=== PATIENT | male | born 1980 | race Caucasian/White ===

== ENCOUNTER 2018-01-23 07:44 | Outpatient (CLI) | payer MEDICAID, SELFPAY ==
--- NOTE | 2018-01-23 08:19 | DI.RAD_ITS ---
SYMPTOM/DIAGNOSIS: THUMB TRAUMA, T14.90XA RIGHT THUMB: Three views. No bone or joint abnormality is identified. IMPRESSION: Negative examination.
== END 2018-01-23 08:04 ==
PROVIDERS: PCP Emergency Medicine; Visit Provider Emergency Medicine
DX: M79.645 Pain in left finger(s) (principal); S69.82XA Other specified injuries of left wrist, hand and finger(s), initial encounter
CPT/HCPCS: 73140

== ENCOUNTER 2018-02-21 08:01 | Outpatient (CLI) | payer MEDICAID, SELFPAY ==
--- NOTE | 2018-02-21 08:08 | W.PREOPHP ---
Assessment and Plan (1) Finger mass, right: Current visit: Yes Status: Acute Plan: Discussed surgery reviewing surgical technique, recovery, benefits and risks including but not limited to risk of infection, blood clot, damage to soft tissue/nerve/blood vessels with patient in detail. After discussion patient gives verbal understanding of risks and elects to proceed with scheduling surgery. Patient had opportunity to have questions answered to his satisfaction. Patient will contact office if issues arise, he will continue to be scheduled for excisional biopsy of possible cyst from his right thumb with Dr. Flores. History of Present Illness Narrative: Mr. Hsu is a 37-year-old tjtzb-lbaj-iludnkzo male who presents to clinic with his girlfriend, Shahida, for preoperative visit for scheduled excisional biopsy of cyst on right thumb with Dr. Flores. Patient reports noticing areas of swelling on his right thumb following a ride on the [employer] in early November 2017. Since that time patient has noticed slight increase in swelling as well as discomfort. He describes discomfort as a constant ache that is aggravated with direct pressure and when attempting to hold objects with his right hand. Patient denies any history of direct trauma to the area. Patient denies any use of ruwa-pfq-awpnfgn medications or topical creams for pain alleviation. He has previously had a right thumb x-ray which was reviewed at his orthopedic appointment - films showed no signs of foreign body, bone or joint abnormality. Due to patient's pain and restricted activity he was offered excisional biopsy of what is likely a cyst from his right thumb. Patient reports he has difficulty using his right hand as he had previously due to the discomfort and elected to proceed with scheduling surgery. He denies any numbness or tingling. Pertinent Surgical Information Denies past medical history of: Hypertension, stroke, cardiac issues, angina, asthma, COPD, sleep apnea, renal issues, liver issues, hepatitis, gastrointestinal issues, ulcers, hyperlipidemia, bleeding disorders, seizures?migraines, anxiety, depression, diabetes, autoimmune disorders, thyroid issues Denies prior complications from surgery or anesthesia. Review of Systems Constitutional Denies fever(s), Denies frequent falls and Denies headache(s) Eyes Denies change in vision ENT Denies dental pain, Denies dizziness, Denies headache(s), Denies epistaxis, Denies nasal congestion, Denies nasal discharge and Denies sore throat Cardiovascular Denies chest pain, Denies rapid heart rate, Denies irregular heart rhythm, Denies dyspnea, Denies dyspnea on exertion, Denies orthopnea, Denies paroxysmal nocturnal dyspnea and Denies slow heart rate Respiratory Denies cough, Denies dyspnea, Denies dyspnea on exertion and Denies wheezing Gastrointestinal Denies abdominal pain, Denies melena, Denies hematochezia, Denies constipation, Denies diarrhea, Denies nausea and Denies vomiting Genitourinary Denies hematuria, Denies dysuria and Denies urinary urgency Musculoskeletal Reports as per HPI, Denies numbness and Denies tingling Neurologic Denies dizziness, Denies frequent falls, Denies headache(s), Denies numbness and Denies tingling Psychiatric Denies anxiety and Denies depression Allergic/Immunologic Denies wheezing PFSH Medical History Finger mass, right (Acute) History of tooth extraction (Acute) Learning disabilities (Acute) Surgical History Myringotomy w/ PE (pressure equalizing) tubes nasal surgery Family History Mother Diabetes Father COPD (chronic obstructive pulmonary disease) Maternal Grandfather Liver cancer Social History marital status: SINGLE current occupational status: disabled Smoking/Tobacco Use Status: Never alcohol intake: never substance use type: does not use Meds Home Medications Medication Instructions Recorded Confirmed Type Unknown [No Known Home Meds] 03/03/17 02/13/18 History Allergies Allergy/AdvReac Type Severity Reaction Status Date / Time No Known Drug Allergies Allergy Verified 02/13/18 09:15 Exam Const General: cooperative and no acute distress [facility] Head: normal to inspection, normocephalic and atraumatic Ears: external ears normal General nose exam: external nose normal and no nasal discharge Face and sinus: face symmetric Mouth: oral mucosae normal, lip normal, tongue normal and moist mucous membranes Teeth and gingiva: fair dentition Throat: posterior oropharynx normal Eyes General: appearance normal, both eyes and all related structures Pupils: PERRL EOM: EOM intact bilaterally Neck Neck: trachea midline Carotids: normal carotid upstroke Lymphatic: no lymphadenopathy noted Resp Effort & Inspection: normal respiratory effort and able to speak in complete sentences Auscultation: clear to auscultation bilaterally, no rales, no rhonchi and no wheezes Cardio Heart Sounds: S1 normal, S2 normal, no murmurs, no rubs and no other Pulses: radial pulses present bilaterally GI Palpation: soft, no hepatosplenomegaly and nontender Auscultation: normal bowel sounds Skin General skin exam: no rashes or lesions noted Extrem Other: Right thumb examination: Skin is intact without signs of erythema or calor. On visual examination there is a noted soft tissue mass on the ulnar lateral aspect of the IP joint. Mass is soft to palpation and is slightly tender. Sensation to light touch intact along the thumb. Active range of motion of thumb is slightly restricted compared to contralateral side due to patient's discomfort along mass elicited with movement at the CMC and IP joints.
== END 2018-02-21 08:21 ==
PROVIDERS: PCP Emergency Medicine; Visit Provider Orthopaedic Surgery
DX: R22.31 Localized swelling, mass and lump, right upper limb (principal); Z01.818 Encounter for other preprocedural examination
CPT/HCPCS: NC

== ENCOUNTER 2018-02-26 11:09 | Day surgery (SDC) | payer MEDICAID, SELFPAY ==
[2018-02-26 11:15] VITALS: BP 135/85; PULSE 67; RESP 16; TEMP 36.3; O2SAT 97
[2018-02-26] MEDS: Lactated Ringers 1,000 ML 80 ML IV ×2 (11:45→13:46)
--- NOTE | 2018-02-26 13:31 | SOFT_PTH ---
PATIENT: Cesar Hsu LOC: [facility] U#:[id number] AGE/SX: 37/M ROOM: RE02/26/[address]: Dixon Flores MD : 1980 BED: DIS: 02/26/2018 SPEC #: [id number] RECD: 02/26/18 17:48 STATUS: MARY PARKS #: [id number] RHETT: 02/26/18 13:[address]: Dixon Flores DEPT: Surgical Specimen RECD BY: Charmaine Haskins ENTERED: 02/26/18 17:50 SP TYPE: SOFT OTHR DR: Papito Thacker DO Tissues: 1 - SOFT TISSUE MISC (INC. LIPOMA) Procedures: GROSS AND MICRO LEVEL 4 Comments: [id number]
--- NOTE | 2018-02-26 13:48 | PDOC.DSDIS_ITS ---
Discharge Plan Disposition Patient Disposition: HOME Condition: Good Discharge Details Reason For Visit: excisional biopsy of mass R thumb Attending Provider: Dixon Flores Primary Care Provider: Papito Thacker Home Meds and New Rx's Prescriptions: New ibuprofen 800 mg tablet 800 mg PO TID PRN (Reason: pain) Qty: 30 RF: 0 hydrocodone-acetaminophen 5-325 mg tablet 1 tab PO Q6H PRN (Reason: pain) Qty: 7 RF: 0 Discharge Instructions Additional Instructions: Keep dressings and splint dry and in place until return. Return to 's office in one week. Take ibuprofen as prescribed for pain. Take hydrocodone, if needed, for breakthru pain not relieved by ibuprofen. Referrals: Dixon Flores MD [ [facility] STAFF PHYSICIAN] - (f/u in one week) Equipment/Supplies: Splint Activity:: Activity as Tolerated Remove Dressings/Wound Care:: Do Not Remove Shower/Bathe:: Cover Diet:: As Tolerated Discharge Orders Discharge Orders: Discharge Order (Routine); Ordered 02/26/18 Ordered By: Dixon Flores DS: Diagnosis Discharge Diagnosis (1) Finger mass, right: Status: Acute
[2018-02-26 14:30] VITALS: BP 118/82; PULSE 64; RESP 16; TEMP 36.2; O2SAT 97
[2018-02-26] MEDS: HYDROcodone 5/Acetaminophen 325 TAB PO (14:30)
--- NOTE | 2018-02-27 15:55 | ROE_ITS ---
DATE OF PROCEDURE: February 26, 2018 PREOPERATIVE DIAGNOSIS: Mass dorsum right thumb. POSTOPERATIVE DIAGNOSIS: Mass dorsum right thumb. PROCEDURE: Excisional biopsy of mass from the dorsum of the right thumb. SURGEON: Dixon Flores M.D. ANESTHESIA: IV regional, Jose De La Cruz CRNA INDICATIONS: This is a 37-year-old white male who has noticed a painful mass on the dorsum of his ri ght thumb. The mass was located just radial to the extensor tendon over the IP joint of the right th umb. It was firm and hard and really felt like a solid tumor rather than a cyst. Excisional biopsy was recommended to determine the exact nature of the mass, to rule out malignancy, and to alleviate d iscomfort. The risks and complications of the procedure were explained to the patient in detail preo peratively. PROCEDURE: The patient was taken to the Operating Room on 02/26/18. He was placed supine on the oper ating table and an IV regional anesthetic was administered to the right upper extremity. Once good a nesthesia was obtained, the right hand, wrist, and forearm were prepped and draped free in the usual sterile fashion. I made an incision that began a few millimeters distal to the lunula of the fingern ail of the thumb. The incision was then brought proximal and curved around the mass on the ulnar anthony e of the extensor tendon, and the incision was then brought back to a longitudinal portion proximal t o the mass and paralleling the extensor tendon of the thumb. The incision was carried down to the bcu. I was able to sharply dissect the extensor tendon and retract it radially away from the mass. The mass was quite adherent to the dorsal capsule of the IP joint. The mass was then excised along w ith a portion of the dorsal capsule of the IP joint to which it was attached. The specimen was sent for histological examination. A rongeur was used to remove any tissue that looked like it might be a remnant of the mass. It was a solid mass and not cystic in nature. Once I was sure that only griselda l tissue remained, I irrigated the joint with Betadine and saline solution. I did not attempt to trinh se the defect in the dorsal capsule of the IP joint. The wound margins were infiltrated with 0.5% Marcaine with epinephrine solution and the skin edges we re then approximated with simple interrupted #4-0 nylon sutures. The wound was dressed with Xeroform gauze followed by tube gauze. Then an AlumaFoam splint was placed over the thumb to immobilize the IP joint in extension and was applied with tape. The patient's IV regional anesthesia was reversed w ithout complications. There was no breakthrough bleeding to the dressings. The patient was discharg ed to the Recovery Room in good condition. The patient was discharged home from the Day Surgery Unit when fully recovered from his IV regional a nesthesia. He was given instructions to keep his dressings and splint dry and intact until he follow s up in my office in one week for a dressing change and wound check. He is given a prescription for breakthrough pain of hydrocodone/APAP 5 mg/325 mg, 1 tablet every 6 hours as needed, 7 tablets. He w ill take Tylenol or ibuprofen for mild pain.
== END 2018-02-26 14:52 | disposition home or self-care (01) ==
PROVIDERS: PCP Emergency Medicine; Visit Provider Orthopaedic Surgery
PROC: (CPT 26160; principal; 2018-02-26 13:00)
DX: D48.0 Neoplasm of uncertain behavior of bone and articular cartilage (principal); R22.31 Localized swelling, mass and lump, right upper limb
CPT/HCPCS: 26160; 88305; 88304; J0690; J1885

== ENCOUNTER 2020-12-21 15:16 | Outpatient (REF) | payer MEDICAID, SELFPAY ==
[2020-12-23 15:54] LABS: COVID-19 RT-PCR UVMMC Result Negative (Negative)
== END 2020-12-21 15:17 | disposition home or self-care (01) ==
LOC: LBN 15:16
PROVIDERS: PCP Emergency Medicine; Visit Provider Family Medicine
DX: Z20.822 Contact with and (suspected) exposure to COVID-19 (principal); R50.9 Fever, unspecified
CPT/HCPCS: U0003

== ENCOUNTER 2021-01-17 00:24 | Outpatient (CLI) | payer MEDICAID, SELFPAY ==
--- NOTE | 2021-01-17 07:15 | DI.US_ITS ---
Exam(s) US ABDOMEN EXAM: US ABDOMEN CLINICAL HISTORY: recurrent RUQ pain, post prandial, r/o gallstones,R10.9 TECHNIQUE: Ultrasound abdomen performed using standard protocol. COMPARISON: US ABDOMEN ULTRASOUND (P) from 01/23/2010 US ABDOMEN ULTRASOUND (P) from 01/23/2010 CT ABD PELVIS WITH CONTRAST from 07/08/2013 CT ABD PELVIS WITH CONTRAST from 07/08/2013 FINDINGS: ABDOMINAL AORTA AND IVC: Visualized portions normal caliber. PANCREAS: Obscured by overlying bowel. LIVER: Normal. Hepatopedal flow in the Portal Vein. The liver measures 15.8 cm long. GALLBLADDER: The gallbladder is full of stones. No evidence of wall thickening. No pericholecystic f luid identified. BILIARY SYSTEM: Common bile duct measures < 7 mm. No intrahepatic biliary ductal dilation. NAIR'S SIGN: Negative. KIDNEYS: Kidneys are symmetric in size. No evidence of renal calculi. No evidence of hydronephrosis. No renal mass or cyst identified. SPLEEN: Not enlarged. ASCITES: None seen. IMPRESSION: Cholelithiasis. No biliary ductal dilatation. No sonographic evidence of acute cholecystitis. DATA REPOSITORY:
== END 2021-01-17 00:44 ==
PROVIDERS: PCP Emergency Medicine; Visit Provider Family Medicine
DX: R10.11 Right upper quadrant pain (principal); K80.20 Calculus of gallbladder without cholecystitis without obstruction
CPT/HCPCS: 76700

== ENCOUNTER 2021-01-26 11:10 | Outpatient (REF) | payer MEDICAID, SELFPAY ==
[2021-01-26 10:29] LABS: HCT 47.9 % (40.0-50.0); HGB 15.8 g/dL (13.5-17.5); MCH 29.3 pg (27.0-33.0); MCV 88.9 fL (80-95); MPV 9.4 fL (8.0-11.0); Platelet Count 320 10^3/uL (130-400); RBC 5.39 10^6/uL (4.36-5.78); RDW 13.4 % (11.8-14.1); RDW-SD 43.7 fL; WBC 9.31 10^3/uL (4.4-10.8)
[2021-01-26 10:42] LABS: ALT 60 U/L (16-63); AST 22 U/L (15-37); Albumin 3.8 g/dL (3.4-5.0); Alkaline Phosphatase 80 U/L (46-116); Anion Gap 8.3 mmol/L (3-11); BUN 14 mg/dL (7-18); Bilirubin, Total 0.4 mg/dL (0.2-1.0); C-Reactive Protein 0.69 mg/dL (0.0-0.3); CO2 26.7 mmol/L (21.0-32.0); CREATININE 0.7 mg/dL (0.70-1.30); Chloride 104 mmol/L (98-107); Glucose 116 mg/dL (74-106); Sodium 139 mmol/L (136-145); Total Protein 7.8 g/dL (6.4-8.2)
== END 2021-01-26 11:11 | disposition home or self-care (01) ==
LOC: LBN 11:10
PROVIDERS: PCP Emergency Medicine; Visit Provider Surgery
DX: F81.9 Developmental disorder of scholastic skills, unspecified (principal); K80.00 Calculus of gallbladder with acute cholecystitis without obstruction; R79.82 Elevated C-reactive protein (CRP)
CPT/HCPCS: 80053; 85027; 86140

== ENCOUNTER 2021-02-20 03:20 | Outpatient (CLI) | payer MEDICAID, SELFPAY ==
[2021-02-20 10:37] LABS: Source Nasal/Nares
[2021-02-20 15:12] LABS: COVID-19 PCR Negative (Negative)
== END 2021-02-20 03:21 | disposition home or self-care (01) ==
LOC: LBO 03:20
PROVIDERS: PCP Emergency Medicine; Visit Provider Surgery
DX: Z20.822 Contact with and (suspected) exposure to COVID-19 (principal)
CPT/HCPCS: 87635

== ENCOUNTER 2021-02-21 11:36 | Inpatient (IN) | payer MEDICAID, SELFPAY ==
--- NOTE | 2021-02-20 11:17 | W.ANESPOSTOP ---
Postoperative Evaluation Date, Time and Location Date Performed: 02/20/21 Time Performed: 11:18 Patient Location: Day Surgery Unit Vital Signs Most Recent Manually Entered Vital Signs: Adult Blood Pressure: 167/90 Heart Rate: 86 Respirations: 12 Oxygen Saturation (%): 99 Temperature (C): 36.2 C Pain Score (0-10 Scale): 0 Assessment Mental Status: Awake (Alert & Oriented to Patient Baseline) Airway and Respiratory Function: Patent airway with normal (patient baseline) respiratory exam Cardiovascular Function: Hemodynamically Stable Hydration Status: Adequately Hydrated Nausea & Vomiting: No Nausea or Vomiting Pain: Pt. Denies Any Pain Peripheral Nerve Block: Patient did not receive a nerve block
[2021-02-21] VITALS (17 sets, daily range): BP systolic 103–139; BP diastolic 66–87; PULSE 85–104; RESP 12–19; TEMP 36–37.7; O2SAT 92–96; BMI 33.7
[2021-02-21] MEDS: Lactated Ringers 1,000 ML 80 ML IV ×2 (08:38→17:43)
[2021-02-21] MEDS: Acetaminophen 500 MG TAB 1000 MG PO (08:39)
[2021-02-21] MEDS: Gabapentin 300 MG CAP 600 MG PO (08:39)
--- NOTE | 2021-02-21 08:44 | W.ANESPRE ---
General Info Date of Service Date Performed: 02/21/21 Height: 5 ft 5 in Weight: 92 kg Body Mass Index (BMI): 33.7 Surgical Procedure: Operation Date: 02/21/21 09:40 Proposed Procedures Side Surgeon p Cholecystectomy Laparoscopic poss. Open Roxanna Mascorro, Meds Allergies and Home Medications Allergies Allergy/AdvReac Type Severity Reaction Status Date / Time No Known Drug Allergies Allergy Unknown Verified 02/21/21 08:06 Home Medication Medication Instructions Recorded omeprazole magnesium 20 mg 20 mg PO DAILY #30 tab 01/11/21 tablet,delayed release Current Visit Medications: Current Medications Generic Name Dose Route Start Last Admin Trade Name Freq PRN Reason Stop Dose Admin Acetaminophen 1,000 mg 02/21/21 06:00 02/21/21 08:39 Acetaminophen 500 Mg Tab PO 03/22/21 23:59 1,000 mg PREOP DESTINEY Administration Gabapentin 600 mg 02/21/21 06:00 02/21/21 08:39 Gabapentin 300 Mg Cap PO 03/22/21 23:59 600 mg PREOP DESTINEY Administration Ringer's Solution 1,000 mls @ 80 mls/hr 02/21/21 06:00 02/21/21 08:38 IV 03/22/21 23:59 80 mls/hr INFUSION DESTINEY Administration Cefazolin Sodium/Dextrose 2 gm in 50 mls @ 100 mls/hr 02/21/21 06:00 Ancef Duplex IVPB 03/22/21 23:59 PREOP DESTINEY IV Miscellaneous Supplies 1 each 02/21/21 06:00 Iv Access IV 03/22/21 23:59 DIRECTED DESTINEY Sodium Chloride 0 ml 02/21/21 06:00 Normal Saline Flush 10 Ml Syr IV 03/22/21 23:59 PRN PRN Sodium Chloride 0 ml 02/21/21 06:00 Normal Saline 10 Ml Vial IJ 03/22/21 23:59 DIRECTED PRN Sterile Water 0 ml 02/21/21 06:00 Water,Injection,Sterile 10 Ml Vial IJ 03/22/21 23:59 DIRECTED PRN PFSH Active Problems Active Problems: Problem Status Onset Code Gross hematuria 10/26/11 R31.0 Hemoptysis 10/26/11 R04.2 Learning disabilities F81.9 History of tooth extraction K08.409 Finger mass, right R22.31 Hematoma of left lower extremity S80.12XA Bilateral otitis externa H60.93 Impacted cerumen H61.20 Dizzy R42 Gallstone K80.20 Acute cholecystitis due to biliary calculus K80.00 Medical History Medical History (Updated 02/21/21 @ 08:07 by Theresa Chau RN) GERD (gastroesophageal reflux disease) Surgical History Surgical History (Updated 02/21/21 @ 08:06 by Theresa Chau RN) H/O excision of mass right thumb Myringotomy w/ PE (pressure equalizing) tubes nasal surgery Surgical repair of choanal atresia as an . Tobacco Smoking/Tobacco Use Status: Never Alcohol Alcohol Intake: never Substance Use Substance use: Never Substance use type: does not use Vital Signs and Lab Results Vital Signs Most Recent Vital Signs in EMR: Most Recent Vital Signs Temp Pulse Resp BP Pulse Ox 36.6 C 86 16 130/82 96 02/21/21 07:58 02/21/21 07:58 02/21/21 07:58 02/21/21 07:58 02/21/21 07:58 Lab Results Blood Type / Crossmatch: No Data to Display Complete Blood Count: White Blood Count 9.31 10^3/uL (4.4-10.8) 01/26/21 10:05 01/26/21 Red Blood Count 5.39 10^6/uL (4.36-5.78) 01/26/21 10:05 01/26/21 Hemoglobin 15.8 g/dL (13.5-17.5) 01/26/21 10:05 01/26/21 Hematocrit 47.9 % (40.0-50.0) 01/26/21 10:05 01/26/21 Platelet Count 320 10^3/uL (130-400) 01/26/21 10:05 01/26/21 Complete Metabolic Panel: Sodium Level 139 mmol/L (136-145) 01/26/21 10:05 01/26/21 Potassium Level 4.0 mmol/L (3.5-5.1) 01/26/21 10:05 01/26/21 Chloride Level 104 mmol/L (98-107) 01/26/21 10:05 01/26/21 Carbon Dioxide Level 26.7 mmol/L (21.0-32.0) 01/26/21 10:05 01/26/21 Blood Urea Nitrogen 14 mg/dL (7-18) 01/26/21 10:05 01/26/21 Creatinine 0.7 mg/dL (0.70-1.30) 01/26/21 10:05 01/26/21 Estimated GFR/1.73 m2 >= 60.00 (mL/min/1.73m2) 01/26/21 10:05 01/26/21 Calcium Level 9.0 mg/dL (8.5-10.1) 01/26/21 10:05 01/26/21 Albumin 3.8 g/dL (3.4-5.0) 01/26/21 10:05 01/26/21 Glucose Level 116 mg/dL (74-106) H 01/26/21 10:05 01/26/21 C-Reactive Protein 0.69 mg/dL (0.0-0.3) H 01/26/21 10:05 01/26/21 Liver Function Panel: Alanine Aminotransferase (ALT/SGPT) 60 U/L (16-63) 01/26/21 10:05 01/26/21 Aspartate Amino Transf (AST/SGOT) 22 U/L (15-37) 01/26/21 10:05 01/26/21 Coagulation Panel: No Data to Display Cardiac Panel: No Data to Display Arterial Blood Gas: No Data to Display Venous Blood Gas: No Data to Display Pancreas Panel: No Data to Display Thyroid Panel: No Data to Display Infectious Disease: Coronavirus (COVID-19)(PCR) Negative (Negative) 02/20/21 08:36 02/20/21 Coronavirus 2019 Source Nasal/Nares 02/20/21 08:36 02/20/21 Blood Cultures: No Data to Display Toxicology Panel: No Data to Display Anesthesia Assessment and Plan Anesthesia History Personal History: No History of Anesthesia Complications Family History: No Family History of Anesthesia Complications Exercise Tolerance Exercise Tolerance: Metabolic Equivalents>4 Pertinent Negatives Pertinent Negatives: No Symptoms of GERD, No Major Cardiovascular Symptoms or Complaints and No Major Pulmonary Symptoms or Complaints Cardiac & Pulmonary Exam Cardiac Exam: Normal S1/S2 Heart Sounds Pulmonary Exam: Clear Bilateral Breath Sounds Implantable Cardiac Device Does patient have a Pacemaker or an ICD?: No Airway Exam Known Difficult Airway: No Mallampati Class: 3 Mouth Opening: Normal (> 3cm) Thyromental Distance: Greater than 3 cm Facial Hair: Full Vaughn Neck Range of Motion: Full ROM Neck Circumference: Normal Teeth Condition: Normal Dentition ASA Classification ASA Score: ASA 2 Emergency Case?: No NPO Status NPO Status: NPO Clears >2 hours, Solids >8 hours Anesthesia Plan Resuscitation Status: Full Code Anesthesia Technique: General Anesthesia Airway Planned: Endotracheal Tube Monitors Used: Standard Monitors
[2021-02-21] MEDS: ceFAZolin 2 GM/50 ML BAG IVPB (09:34)
[2021-02-21] MEDS: Bupivacaine 0.25% Pres-Free 30 ML VIAL (10:30)
--- NOTE | 2021-02-21 11:20 | GB_PTH ---
PATIENT: Cesar Hsu LOC: U#:[id number] AGE/SX: 40/M ROOM: RE02/21/[address]: Roxanna Mascorro : 1980 BED: A DIS: 02/22/2021 SPEC #: [id number] RECD: 02/21/21 12:19 STATUS: MARY REQ #: [id number] RHETT: 02/21/21 11:[address]: Roxanna Mascorro DEPT: Surgical Specimen RECD BY: Charmaine Haskins ENTERED: 02/21/21 12:19 SP TYPE: GB OTHR DR: Papito Thacker DO Tissues: 1 - GALLBLADDER Procedures: GROSS AND MICRO LEVEL 3 Comments: [id number]
--- NOTE | 2021-02-21 11:44 | W.PM.OP ---
Date of service: 02/21/21 Time of Service: 12:00 Operative Note Operative Note DATE OF PROCEDURE: 02/21/21 PRE-OP DIAGNOSIS: chronic herrera w/ stones POST-OP DIAGNOSIS: other (acute on chronic w/ stones ) PROCEDURE: lap herrera SURGEON: Roxanna Murray [employer] COACH: Karie Robertson ANESTHESIA TYPE: Local By Surgeon and General LMA/ETT Refer to Anesthesia Record ESTIMATED BLOOD LOSS: 75 PATHOLOGY: other COMPLICATIONS: None Patient was transported to: PACU Procedure Description: The pt is seen at the request of there PCP regarding acute on chronic cholecystitis, cholelithiasis. The pt has failed outpt conservative medical measures and is here today for laparoscopic cholecystectomy. Informed consent was obtained, explaining risks and benefits of the procedure including but not limited to bleeding, infection, pneumonia, blood clots, possible damage to bowel, bladder, blood vessels, bile ducts, possible open procedure, complications of general anesthesia and other unforetold complications. PROCEDURE: The patient agrees and is brought to the operative room suite and placed in supine position. Anesthesia was administered per the Department of Anesthesia. The patient did receive IV antibiotics. NG tube and Vuong catheter are placed. The patient was prepped and draped in the usual sterile fashion using DuraPrep scrub solution. Pause for the cause was done. 20 mL of 1% buffered lidocaine was used for local anesthetization. A stab incision was made in the umbilicus and the Verres inserted. Drop test was positive and insufflation was begun. When 15 mm of pressure was noted on the monitor, the Veress was removed and #5 port inserted. The camera was inserted through the port and shows no damage to underlying structures. A 10 mm port was then placed in the epigastric position under direct visualization following creation of local field blocks as well as two 5 mm ports in the right upper quadrant. The gallbladder wall is thickened. We did attempt to aspirate and deconpress the gallbladder, but there was no bile. The gallbladder wall is thickened, and it is difficult to get purchase on the gallbladder. A 10mm port is placed in the RLQ and a 10mm grasper is used. The gallbladder fundus was grasped and retracted towards the right shoulder. Infundibulum was grasped and retracted laterally. The hepat-duodenal ligament is entered. The cystic duct and artery are dissected out and the most inferior portion of the gallbladder plate is removed from the liver and the critical view of safety was obtained after clearing away all fatty material. Endo Clips were placed across the duct and artery and these structures are divided. The gallbladder is intrahepatic. The remainder of the gallbladder was excised from the liver bed. In order to facilitate removal, the epigastric port site is enlarged. The gallbladder was brought out. Examination of the gallbladder shows indeed the cystic duct and artery to have been divided, and the entirity of the gallbladder is filled w/ stones. The remainder of the abdomen was copiously irrigated with a liter of saline. All saline is removed. FloSeal is placed in the gallbladder fossa. There is no bleeding or bile leakage from the liver bed or the clips sites. An EndoClose needle was used to close the 10 mm port site in the RLQ with an 0 Vicryl. All ports and instruments are removed. SPonge and needle counts are correct. Pneumoperitoneum is evacuated and the port sites are monitored to make sure there is no bleeding at the time of desufflation. The epigastric port site is instilled w/ 10cc Experel at the time of closure. Interceed was placed under the epigastric port site. The fascia is closed w/ interrupted O vicryl sutures. Port sites are irrigated and the skin is closed with 4-0 Monocryl in a running subcuticular fashion. Skin glue sterile dressings are applied. The patient tolerated the procedure well without complications, transferred to the recovery room in stable condition. He did receive a dose of levaquin in the OR. He is going to be admitted ROXANNA MURRAY,
[2021-02-21] MEDS: Droperidol 5 MG/2 ML VIAL 0.625 MG IVP (13:23)
--- NOTE | 2021-02-21 13:50 | W.ANESPOSTOP ---
Postoperative Evaluation Date, Time and Location Date Performed: 02/21/21 Time Performed: 13:50 Patient Location: PACU Vital Signs Most Recent Imported Vital Signs: Most Recent Vital Signs Temp Pulse Resp BP Pulse Ox 36.2 C L 97 H 16 117/72 93 02/21/21 13:30 02/21/21 13:30 02/21/21 13:30 02/21/21 13:30 02/21/21 13:30 Pain Score Most Recent Pain Score: Most Recent Pain Score Pain Level 0 02/21/21 13:30 Assessment Mental Status: Arousable with meaningful communication Airway and Respiratory Function: Patent airway with normal (patient baseline) respiratory exam Cardiovascular Function: Hemodynamically Stable Hydration Status: Adequately Hydrated Nausea & Vomiting: No Nausea or Vomiting Pain: Pain is tolerable per patient Peripheral Nerve Block: Patient did not receive a nerve block
--- NOTE | 2021-02-21 14:07 | W.PM.PROGNOT ---
Date of Service Date of service: 02/21/21 Time of Service: 14:09 Assessment and Plan Assessment and plan (1) Obstructive airway disease: Status: Acute (2) Gallstone: Status: Acute (3) Acute cholecystitis due to biliary calculus: Status: Acute (4) GERD (gastroesophageal reflux disease): Subjective Subjective Interval history since last seen: pt had a subacute cholesystitis- thickened wall and mult stones. I Had to enlarged the epigastric incision to to remove gb will keep overnight for IV abx and pain control pt doing ok in PACU. significant desaturation w/ out his CPAP. plan d/c in am The patient is doing well post-op. Their pain is well controlled. They are having no nausea or vomiting. The pt is not having any chest pain or SOB, productive cough; no calf pain or swelling. The pt is making good urine. The pt pain is adequately controlled. The case was discussed with nursing and patient?s progress reviewed. All of the pt's home medications were addressed and adjusted accordingly for their oral intact status. HEENT: no jaundice. no eye pain/drainage/redness/swelling. Mild sore throat Cardio- NSR no chest pain, BP stable. Pulm: no sob or productive cough. no hemoptysis Incision- clean/dry. Dressing intact no excessive bleeding or drainage I discussed with the patient w/his fiance about the findings in surgery and the pt's progress. We reviewed expectations for progress in the hospital; what the pt could expect for recovery time and length of stay. We discussed the importance of walking and pulmonary toilet to avoid blood clots and pneumonia. Continue current plans for pulmonary toilet, GI and DVT prophylaxis. We shall continue the current plan for pain management as it is at an appropriate level, and working well for the pt. Appropriate measures will be taken for constipation prevention, and this was also reviewed with the pt. The wound care plan was reviewed with nursing as well. d/w CMfor assistance at home w/ medications and wound care. see orders Objective Last Vital Signs Temp 36.2 C L 02/21/21 13:59 Pulse 99 H 02/21/21 13:59 Resp 16 02/21/21 13:59 BP 103/68 02/21/21 13:59 Pulse Ox 93 02/21/21 13:59
--- NOTE | 2021-02-21 14:13 | W.PM.DS.N ---
Documented by User: Roxanna Mascorro DO 02/21/21 14:21 Date of service: 02/22/21 DS: Diagnosis Discharge Diagnosis (1) Obstructive airway disease: Status: Acute (2) Gallstone: Status: Acute (3) Acute cholecystitis due to biliary calculus: Status: Acute (4) GERD (gastroesophageal reflux disease): Discharge Plan Disposition Patient Disposition: HOME W/HOME HEALTH SERVICE Condition: Good Discharge Details Reason For Visit: Acute Aneta w/Stones Admit Date/Time: 02/21/21 11:36 Admit Provider: Roxanna Mascorro Attending Provider: Roxanna Mascorro Primary Care Provider: Papito Thacker Hospital Course Hospital Course: 40 y/o male was admitted over night for observation and IV antibiotics following laparoscopic cholecystectomy for gallstones. During the procedure, he was identified to have acute cholecysititis due to biliary calculus. Patient did well over night, tolerating a clear liquid diet. His diet was progressed in the morning to a soft diet which he tolerated well also. No fevers, chills or night sweats. Patient was ambulating independently within the room and within the hallway. He is urinating without difficulty. He will be d/c home. Home Meds and New Rx's Prescriptions: New ibuprofen 600 mg tablet 600 mg PO Q6H PRN (Reason: pain) Qty: 90 RF: 0 tramadol 50 mg tablet 50 mg PO Q6H PRN (Reason: pain (scale score 7-10)) Qty: 14 RF: 0 ondansetron HCl 4 mg tablet 4 mg PO Q8H PRNQty: 4 RF: 0 amoxicillin-pot clavulanate [Augmentin] 875-125 mg tablet 1 tab PO BID Qty: 10 RF: 0 Continued omeprazole magnesium 20 mg tablet,delayed release (DR/EC) 20 mg PO DAILY Qty: 30 RF: 1 Discharge Instructions Instructions: Low Fat Diet (DC), Laparoscopic Cholecystectomy (DC) Additional Instructions: Care after Gallbladder Surgery -Pain control: For the first 72 hours after surgery, take you pain meds continuously and not just when you have pain. Alternate Tylenol 1000mg by mouth every 8 hours, and Ibuprofen 600mg every 6 hours. Make sure you take ibuprofen with food and not on an empty stomach. Use the tramadol for breakthrough pain- pain that is greater than a 7. - Use ICE! Ice really helps to keep the swelling down, and swelling causes pain. Twenty minutes on, and then off, continuously for the first 72hours. After the first 72hrs, you can just use the Tylenol, ibuprofen or Celebrex, and ice, when you have pain. If you are taking narcotic pain medication, follow the instructions on the label and do not drive. Pain medications can make you very constipated. Make sure you are moving your bowels daily. If not, take Miralax, milk of magnesia or magnesium citrate. - Anesthesia makes you very constipated. Take a dose of milk of magnesia the morning after surgery. ? Use an ice bag for the first 72 hours. This helps to decrease swelling, which causes pain. It is normal to be more sore/painful and swollen towards the end of the day and first thing in the morning. ? Gallbladder surgery can make you very nauseated; use Zofran for nausea, for the first 24 hours. The nausea generally stops after 24 hours. ? Use milk of magnesia or prune juice to prevent constipation (this is a particular side effect of pain medication and anesthesia). Do not allow yourself to become constipated. ? Avoid fatty or greasy foods; introduce these slowly, with care, after about 1 month. High-fat foods include: ? Foods that are fried, like Romanian fries and potato chips ? High-fat meats, such as kearns, bologna, sausage, ground beef, and ribs, pork products ? High-fat dairy products, such as cheese, ice cream, cream, whole milk, and sour cream ? Pizza ? Foods made with lard or butter ? Creamy soups or sauces ? Meat gravies ? Chocolate ? Oils, such as palm and coconut oil ? Skin of chicken or turkey Nuts and nut butters Avacadoes ? Start out eating very small, bland amounts of food. Do not take pain pills on an empty stomach. - -You should walk frequently, gradually, increasing the distance. You may climb stairs, just go slowly. ? Do not go swimming or sit in a hot tub for two weeks. ? There are no stitches to remove. ? Do not drive your car x72hrs and then only if you have no pain and can move freely. Do not drive if you are taking pain narcotic pain medications. ? You may resume sexual activity whenever pain and soreness subside, usually in 2 weeks. ? Do no lift anything over 5 lbs. for two weeks. ? You may return to work in one week, or when you feel able, provided you do not have to do any heavy lifting or prolonged standing. ? You should return to Dr. Mascorro?s office for a post-op appointment about one week after surgery. Please call the Surgical Clinic at: [phone] to schedule an appointment. My Medications for pain and nausea are: Celebrex and ultram, and zofran When to Call the Office: ? If the incision becomes red or swollen, or there is more than a little drainage from it. ? If you develop a temperature higher than 100.5 F. ? If your eyes turn yellow ? Vomiting and can?t keep fluids down Referrals: Roxanna Mascorro, [OSTEOPATHIC DOCTOR] - 03/09/21 9:30 am Activity:: Activity as Tolerated Equipment/Supplies:: No Equipment Needed Diet:: low fat x2 wks Discharge Orders Discharge Orders: Discharge Order (Routine); Ordered 02/22/21 Ordered By: Sisi López DS: Data Vitals/I&O Vitals and I&O: Vital Signs Temperature 36.2 C L 02/21/21 13:59 Pulse 99 H 02/21/21 13:59 Pulse Rhythm Regular 02/21/21 07:58 Respiratory Rate 16 02/21/21 13:59 Respiratory Depth Normal 02/21/21 07:58 Blood Pressure 103/68 02/21/21 13:59 Pulse Oximetry 93 02/21/21 13:59 Respiratory End-tidal CO2 42 02/21/21 13:59 Oxygen Delivery Method Nasal Cannula 02/21/21 13:59 Oxygen Flow Rate 3 02/21/21 13:59 Pain Level 0 02/21/21 13:59 Intake & Output 02/20/21 02/21/21 02/21/21 23:59 11:59 23:59 Intake Total 800 / 800 Output Total 100 / 100 Balance 700 / 700 Weight 92 kg Intake: IV 800 / 800 Output: Urine 25 / 25 Estimated Blood Loss 75 / 75 Other: Urine Color Light Molly Urine Appearance Clear Emesis Description None None Data Completed and Pending Labs on day of discharge: 02/21/21 10:12 Gallbladder - Bile Surgical Culture - Pending Preliminary micro results at discharge 02/21/21 10:12 Surgical Culture - Pending Gallbladder - Bile PFSH All Active Problems (Updated 02/21/21 @ 14:12 by Roxanna Mascorro DO) Obstructive airway disease (Acute) Gross hematuria (Acute 10/26/11) Hemoptysis (Acute 10/26/11) Learning disabilities (Acute) History of tooth extraction (Acute) 4 impacted teeth removed Finger mass, right (Acute) Right thumb mass Hematoma of left lower extremity (Acute) Bilateral otitis externa (Acute) Impacted cerumen (Acute) Dizzy (Acute) Gallstone (Acute) Acute cholecystitis due to biliary calculus (Acute) Medical History (Updated 02/21/21 @ 14:12 by Roxanna Mascorro DO) GERD (gastroesophageal reflux disease) Surgical History (Updated 02/21/21 @ 08:06 by Theresa Chau RN) H/O excision of mass right thumb Myringotomy w/ PE (pressure equalizing) tubes nasal surgery Surgical repair of choanal atresia as an . Family History Mother Diabetes Father COPD (chronic obstructive pulmonary disease) Maternal Grandfather Liver cancer Social History Smoking/Tobacco Use Status: Never Smoking risk assessment performed?: Yes Alcohol Intake: never Drug use: Never Substance use type: does not use Do you feel safe at home: Yes Do you feel safe in your relationship?: Yes Additional Social history: Lives with fiance Documented by User: RICHARD Avendaño 02/22/21 09:36 Date of service: 02/22/21 Time of Service: 09:33 Discharge Plan Disposition Patient Disposition: HOME W/HOME HEALTH SERVICE Condition: Good Discharge Details Reason For Visit: Acute Aneta w/Stones Admit Date/Time: 02/21/21 11:36 Admit Provider: Roxanna Mascorro Attending Provider: Roxanna Mascorro Primary Care Provider: Papito Thacker [facility] Course Hospital Course: 40 y/o male was admitted over night for observation and IV antibiotics following laparoscopic cholecystectomy for gallstones. During the procedure, he was identified to have acute cholecysititis due to biliary calculus. Patient did well over night, tolerating a clear liquid diet. His diet was progressed in the morning to a soft diet which he tolerated well also. No fevers, chills or night sweats. Patient was ambulating independently within the room and within the hallway. He is urinating without difficulty. He will be d/c home. Home Meds and New Rx's Prescriptions: New ibuprofen 600 mg tablet 600 mg PO Q6H PRN (Reason: pain) Qty: 90 RF: 0 tramadol 50 mg tablet 50 mg PO Q6H PRN (Reason: pain (scale score 7-10)) Qty: 14 RF: 0 ondansetron HCl 4 mg tablet 4 mg PO Q8H PRNQty: 4 RF: 0 amoxicillin-pot clavulanate [Augmentin] 875-125 mg tablet 1 tab PO BID Qty: 10 RF: 0 Continued omeprazole magnesium 20 mg tablet,delayed release (DR/EC) 20 mg PO DAILY Qty: 30 RF: 1 Discharge Instructions Instructions: Low Fat Diet (DC), Laparoscopic Cholecystectomy (DC) Additional Instructions: Care after Gallbladder Surgery -Pain control: For the first 72 hours after surgery, take you pain meds continuously and not just when you have pain. Alternate Tylenol 1000mg by mouth every 8 hours, and Ibuprofen 600mg every 6 hours. Make sure you take ibuprofen with food and not on an empty stomach. Use the tramadol for breakthrough pain- pain that is greater than a 7. - Use ICE! Ice really helps to keep the swelling down, and swelling causes pain. Twenty minutes on, and then off, continuously for the first 72hours. After the first 72hrs, you can just use the Tylenol, ibuprofen or Celebrex, and ice, when you have pain. If you are taking narcotic pain medication, follow the instructions on the label and do not drive. Pain medications can make you very constipated. Make sure you are moving your bowels daily. If not, take Miralax, milk of magnesia or magnesium citrate. - Anesthesia makes you very constipated. Take a dose of milk of magnesia the morning after surgery. ? Use an ice bag for the first 72 hours. This helps to decrease swelling, which causes pain. It is normal to be more sore/painful and swollen towards the end of the day and first thing in the morning. ? Gallbladder surgery can make you very nauseated; use Zofran for nausea, for the first 24 hours. The nausea generally stops after 24 hours. ? Use milk of magnesia or prune juice to prevent constipation (this is a particular side effect of pain medication and anesthesia). Do not allow yourself to become constipated. ? Avoid fatty or greasy foods; introduce these slowly, with care, after about 1 month. High-fat foods include: ? Foods that are fried, like Romanian fries and potato chips ? High-fat meats, such as kearns, bologna, sausage, ground beef, and ribs, pork products ? High-fat dairy products, such as cheese, ice cream, cream, whole milk, and sour cream ? Pizza ? Foods made with lard or butter ? Creamy soups or sauces ? Meat gravies ? Chocolate ? Oils, such as palm and coconut oil ? Skin of chicken or turkey Nuts and nut butters Avacadoes ? Start out eating very small, bland amounts of food. Do not take pain pills on an empty stomach. - -You should walk frequently, gradually, increasing the distance. You may climb stairs, just go slowly. ? Do not go swimming or sit in a hot tub for two weeks. ? There are no stitches to remove. ? Do not drive your car x72hrs and then only if you have no pain and can move freely. Do not drive if you are taking pain narcotic pain medications. ? You may resume sexual activity whenever pain and soreness subside, usually in 2 weeks. ? Do no lift anything over 5 lbs. for two weeks. ? You may return to work in one week, or when you feel able, provided you do not have to do any heavy lifting or prolonged standing. ? You should return to Dr. Mascorro?s office for a post-op appointment about one week after surgery. Please call the Surgical Clinic at: [phone] to schedule an appointment. My Medications for pain and nausea are: Celebrex and ultram, and zofran When to Call the Office: ? If the incision becomes red or swollen, or there is more than a little drainage from it. ? If you develop a temperature higher than 100.5 F. ? If your eyes turn yellow ? Vomiting and can?t keep fluids down Referrals: Roxanna Mascorro DO [OSTEOPATHIC DOCTOR] - 03/09/21 9:30 am Activity:: Activity as Tolerated Equipment/Supplies:: No Equipment Needed Diet:: low fat x2 wks Discharge Orders Discharge Orders: Discharge Order (Routine); Ordered 02/22/21 Ordered By: Sisi López [facility] All Active Problems (Updated 02/21/21 @ 14:12 by Roxanna Mascorro DO) Obstructive airway disease (Acute) Gross hematuria (Acute 10/26/11) Hemoptysis (Acute 10/26/11) Learning disabilities (Acute) History of tooth extraction (Acute) 4 impacted teeth removed Finger mass, right (Acute) Right thumb mass Hematoma of left lower extremity (Acute) Bilateral otitis externa (Acute) Impacted cerumen (Acute) Dizzy (Acute) Gallstone (Acute) Acute cholecystitis due to biliary calculus (Acute) Medical History (Updated 02/21/21 @ 14:12 by Roxanna Mascorro DO) GERD (gastroesophageal reflux disease) Surgical History (Updated 02/21/21 @ 08:06 by Theresa Chau RN) H/O excision of mass right thumb Myringotomy w/ PE (pressure equalizing) tubes nasal surgery Surgical repair of choanal atresia as an . Family History Mother Diabetes Father COPD (chronic obstructive pulmonary disease) Maternal Grandfather Liver cancer Social History Smoking/Tobacco Use Status: Never Smoking risk assessment performed?: Yes Alcohol Intake: never Drug use: Never Substance use type: does not use Do you feel safe at home: Yes Do you feel safe in your relationship?: Yes Additional Social history: Lives with fiance Documented by User: Sisi López MD 02/22/21 12:02 Discharge Plan Disposition Patient Disposition: HOME W/HOME HEALTH SERVICE Condition: Good Discharge Details Reason For Visit: Acute Aneta w/Stones Admit Date/Time: 02/21/21 11:36 Admit Provider: Roxanna Mascorro Attending Provider: Roxanna Mascorro Primary Care Provider: Papito Thacker Hospital Course Hospital Course: 40 y/o male was admitted over night for observation and IV antibiotics following laparoscopic cholecystectomy for gallstones. During the procedure, he was identified to have acute cholecysititis due to biliary calculus. Patient did well over night, tolerating a clear liquid diet. His diet was progressed in the morning to a soft diet which he tolerated well also. No fevers, chills or night sweats. Patient was ambulating independently within the room and within the hallway. He is urinating without difficulty. He will be d/c home. Home Meds and New Rx's Prescriptions: New ibuprofen 600 mg tablet 600 mg PO Q6H PRN (Reason: pain) Qty: 90 RF: 0 tramadol 50 mg tablet 50 mg PO Q6H PRN (Reason: pain (scale score 7-10)) Qty: 14 RF: 0 ondansetron HCl 4 mg tablet 4 mg PO Q8H PRNQty: 4 RF: 0 amoxicillin-pot clavulanate [Augmentin] 875-125 mg tablet 1 tab PO BID Qty: 10 RF: 0 Continued omeprazole magnesium 20 mg tablet,delayed release (DR/EC) 20 mg PO DAILY Qty: 30 RF: 1 Discharge Instructions Instructions: Low Fat Diet (DC), Laparoscopic Cholecystectomy (DC) Additional Instructions: Care after Gallbladder Surgery -Pain control: For the first 72 hours after surgery, take you pain meds continuously and not just when you have pain. Alternate Tylenol 1000mg by mouth every 8 hours, and Ibuprofen 600mg every 6 hours. Make sure you take ibuprofen with food and not on an empty stomach. Use the tramadol for breakthrough pain- pain that is greater than a 7. - Use ICE! Ice really helps to keep the swelling down, and swelling causes pain. Twenty minutes on, and then off, continuously for the first 72hours. After the first 72hrs, you can just use the Tylenol, ibuprofen or Celebrex, and ice, when you have pain. If you are taking narcotic pain medication, follow the instructions on the label and do not drive. Pain medications can make you very constipated. Make sure you are moving your bowels daily. If not, take Miralax, milk of magnesia or magnesium citrate. - Anesthesia makes you very constipated. Take a dose of milk of magnesia the morning after surgery. ? Use an ice bag for the first 72 hours. This helps to decrease swelling, which causes pain. It is normal to be more sore/painful and swollen towards the end of the day and first thing in the morning. ? Gallbladder surgery can make you very nauseated; use Zofran for nausea, for the first 24 hours. The nausea generally stops after 24 hours. ? Use milk of magnesia or prune juice to prevent constipation (this is a particular side effect of pain medication and anesthesia). Do not allow yourself to become constipated. ? Avoid fatty or greasy foods; introduce these slowly, with care, after about 1 month. High-fat foods include: ? Foods that are fried, like Romanian fries and potato chips ? High-fat meats, such as kearns, bologna, sausage, ground beef, and ribs, pork products ? High-fat dairy products, such as cheese, ice cream, cream, whole milk, and sour cream ? Pizza ? Foods made with lard or butter ? Creamy soups or sauces ? Meat gravies ? Chocolate ? Oils, such as palm and coconut oil ? Skin of chicken or turkey Nuts and nut butters [place]acadoes ? Start out eating very small, bland amounts of food. Do not take pain pills on an empty stomach. - -You should walk frequently, gradually, increasing the distance. You may climb stairs, just go slowly. ? Do not go swimming or sit in a hot tub for two weeks. ? There are no stitches to remove. ? Do not drive your car x72hrs and then only if you have no pain and can move freely. Do not drive if you are taking pain narcotic pain medications. ? You may resume sexual activity whenever pain and soreness subside, usually in 2 weeks. ? Do no lift anything over 5 lbs. for two weeks. ? You may return to work in one week, or when you feel able, provided you do not have to do any heavy lifting or prolonged standing. ? You should return to Dr. Mascorro?s office for a post-op appointment about one week after surgery. Please call the Surgical Clinic at: [phone] to schedule an appointment. My Medications for pain and nausea are: Celebrex and ultram, and zofran When to Call the Office: ? If the incision becomes red or swollen, or there is more than a little drainage from it. ? If you develop a temperature higher than 100.5 F. ? If your eyes turn yellow ? Vomiting and can?t keep fluids down Referrals: Roxanna Mascorro DO [OSTEOPATHIC DOCTOR] - 03/09/21 9:30 am Activity:: Activity as Tolerated Equipment/Supplies:: No Equipment Needed Diet:: low fat x2 wks Discharge Orders Discharge Orders: Discharge Order (Routine); Ordered 02/22/21 Ordered By: Sisi López DS: Summary Time Spent with Patient providing and/or coordinating discharge services: Less than 30 minutes Status at Discharge Functional status at discharge: independent ambulation Overall status at discharge: patient is back to baseline Mental Status: mental status grossly normal Speech and Movement: speech and movement normal Mood: congruent mood Affect: normal affect Exam Resp Effort & Inspection: normal respiratory effort Auscultation: clear to auscultation bilaterally Cardio Rate: regular rate Rhythm: regular rhythm GI Inspection: incision (c/d/i) Palpation: soft and tender (appropriately tender around the incisions) Auscultation: normal bowel sounds Psych Mental Status: mental status grossly normal Speech and Movement: speech and movement normal Mood: congruent mood Affect: normal affect PFSH All Active Problems (Updated 02/21/21 @ 14:12 by Roxanna Mascorro DO) Obstructive airway disease (Acute) Gross hematuria (Acute 10/26/11) Hemoptysis (Acute 10/26/11) Learning disabilities (Acute) History of tooth extraction (Acute) 4 impacted teeth removed Finger mass, right (Acute) Right thumb mass Hematoma of left lower extremity (Acute) Bilateral otitis externa (Acute) Impacted cerumen (Acute) Dizzy (Acute) Gallstone (Acute) Acute cholecystitis due to biliary calculus (Acute) Medical History (Updated 02/21/21 @ 14:12 by Roxanna Mascorro DO) GERD (gastroesophageal reflux disease) Surgical History (Updated 02/21/21 @ 08:06 by Theresa Chau RN) H/O excision of mass right thumb Myringotomy w/ PE (pressure equalizing) tubes nasal surgery 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 Family History Mother Diabetes Father COPD (chronic obstructive pulmonary disease) Maternal Grandfather Liver cancer Social History Smoking/Tobacco Use Status: Never Smoking risk assessment performed?: Yes Alcohol Intake: never Drug use: Never Substance use type: does not use Do you feel safe at home: Yes Do you feel safe in your relationship?: Yes Additional Social history: Lives with fiance
[2021-02-21] MEDS: Ketorolac 15 MG/ML VIAL IVP (17:42)
[2021-02-21] MEDS: Ondansetron 4 MG/2 ML VIAL IVP (17:43)
--- NOTE | 2021-02-21 17:44 | NUR.NOTE ---
Patient had one episode of vomit when trying to eat supper. Zofran administered. He consumed 25% of meal
[2021-02-21] MEDS: Normal Saline 1,000 ML 125 ML IV (18:56)
[2021-02-21] MEDS: Pantoprazole 40 MG VIAL IVP (19:56)
[2021-02-21] MEDS: ACETAMINOPHEN 1,000 MG/100 ML BTL 400 MG IVPB (19:57)
[2021-02-21] MEDS: Normal Saline Flush 10 ML SYR IVP (19:57)
[2021-02-21] MEDS: Gabapentin 100 MG CAP PO (21:05)
[2021-02-22] MEDS: Ketorolac 15 MG/ML VIAL IVP ×3 (00:15→12:25)
[2021-02-22] MEDS: ACETAMINOPHEN 1,000 MG/100 ML BTL 400 MG IVPB ×2 (02:13→08:33)
[2021-02-22] MEDS: Normal Saline 1,000 ML 125 ML IV (03:41)
[2021-02-22 06:00] VITALS: BP 108/66; PULSE 100; RESP 18; TEMP 37.6; O2SAT 94
[2021-02-22 06:01] VITALS: TEMP 37.6
[2021-02-22] MEDS: Normal Saline Flush 10 ML SYR IVP ×2 (06:02→12:24)
[2021-02-22 06:53] VITALS: BP 121/77; PULSE 104; RESP 18; TEMP 37.3; O2SAT 94
--- NOTE | 2021-02-22 07:13 | W.PM.PROGNOT ---
Documented by User: RICHARD Avendaño 02/22/21 07:20 Date of Service Date of service: 02/22/21 Time of Service: 07:13 Assessment and Plan Assessment and plan (1) Acute cholecystitis due to biliary calculus: Status: Acute Assessment and plan: POD #1 s/p laparoscopic Cholecystectomy Tolerating clears, advance as tolerated pain is well controlled Encouraged increasing activity, ambulation in the hallway Pulmonary toilet Awaiting morning labs. Progress diet. Hopefully d/c home later today. (2) Gallstone: Status: Acute Subjective Subjective Patient reports: no flatus Interval history since last seen: Patient reports he is feeling well this morning, denying any complaints of pain. He reports that when he initially arrived on the floor yesterday, he vomited a single time. Denies having any nausea or vomiting since. States that he has been ambulating and urinating without difficulty. Exam Const General: cooperative, healthy appearing and comfortable Orientation: alert and oriented x3 Resp Effort & Inspection: normal respiratory effort, no audible wheezes and no cough GI Inspection: normal to inspection Palpation: soft, no guarding and tender (Around port sites.) Objective Last Vital Signs Temp 37.3 C 02/22/21 06:53 Pulse 104 H 02/22/21 06:53 Resp 18 02/22/21 06:53 BP 121/77 02/22/21 06:53 Pulse Ox 94 02/22/21 06:53 Documented by User: Sisi López MD 02/22/21 11:49
[2021-02-22 07:30] VITALS: BP 125/83; PULSE 98; RESP 16; TEMP 36.4; O2SAT 93
[2021-02-22 07:38] LABS: Abs Immature Grans 0.09 10^3/uL (0.0-0.06); Absolute Basophil Count 0.02 10^3/uL (0.0-0.2); Absolute Neutrophil Count 16.67 10^3/uL (1.2-6.7); Basophils % 0.1; HCT 43.6 % (40.0-50.0); HGB 14.5 g/dL (13.5-17.5); Immature Grans % 0.5; Lymphocytes % 7.8; MCH 29.1 pg (27.0-33.0); MCHC 33.3 % (32.0-36.0); MCV 87.6 fL (80-95); MPV 9.4 fL (8.0-11.0); Monocytes % 5.1; Neutrophils % 86.5; Nucleated RBC 0 %; Platelet Count 305 10^3/uL (130-400); RBC 4.98 10^6/uL (4.36-5.78); RDW 13.9 % (11.8-14.1); RDW-SD 44.3 fL; WBC 19.27 10^3/uL (4.4-10.8)
[2021-02-22 07:43] LABS: Absolute Monocyte Count 0.98 10^3/uL (0.1-0.8)
[2021-02-22] MEDS: Enoxaparin 40 MG/0.4 ML SYR SC (08:33)
--- NOTE | 2021-02-22 10:44 | PDOC.CMIN ---
- If Service Date Differs Date of service: 02/22/21 Time of Service: 10:44 Care Management Initial Assess REASON FOR HOSPITALIZATION:: acute cholecystitis PAST MEDICAL HISTORY/PAST SURGICAL HISTORY:: All Active Problems (Updated 02/21/21 @ 14:12 by Roxanna Mascorro DO). Obstructive airway disease (Acute). Gross hematuria (Acute 10/26/11). Hemoptysis (Acute 10/26/11). Learning disabilities (Acute). History of tooth extraction (Acute). 4 impacted teeth removed. Finger mass, right (Acute). Right thumb mass. Hematoma of left lower extremity (Acute). Bilateral otitis externa (Acute). Impacted cerumen (Acute). Dizzy (Acute). Gallstone (Acute). Acute cholecystitis due to biliary calculus (Acute). Medical History (Updated 02/21/21 @ 14:12 by Roxanna Mascorro DO). GERD (gastroesophageal reflux disease). Surgical History (Updated 02/21/21 @ 08:06 by Theresa Chau RN). H/O excision of mass. right thumb. Myringotomy w/ PE (pressure equalizing) tubes. nasal surgery. 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 PREVIOUS FUNCTIONAL STATUS/SOCIAL/FAMILY SUPPORTS:: Cesar is curreently living in [facility] with his girlfriend in her parents' apartment. 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 He receives food stamps and disability but no other community services. 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 CURRENT FUNCTIONAL STATUS:: Parish was sitting up in a chair when CM met with him. He was pleasant and interacted well with SETH. Parish stated that he was being discharged today and that he will be staying with his girlfriend and her parents in [facility]. Parish stated that he is not connected to any community services.SETH discussed [facility] and Parish is agreeeable to having a referral sent for community case management. ADVANCE DIRECTIVES:: none on file Has patient been provided with info about the portal/API?: Yes Did the patient sign up for the portal?: No CODE STATUS:: Full Code INSURANCE COVERAGE / FINANCIAL ISSUES:: Medicaid CURRENT HOME/COMMUNITY SERVICES/EQUIPMENT:: Food stamps and social security disability PRIMARY CARE PHYSICIAN:: Papito Thacker POTENTIAL DISCHARGE NEEDS:: Follow up with PCP and plan of care PATIENT/FAMILY EDUCATION NEEDS:: Review of discharge instructions, follow up plan, medications, limitations, activity, Ask Me Three TRANSPORTATION:: via private vehicle vs RCT PLAN:: Cesar will likely be discharged home when medically cleared by provider. He will need new home health services for nursing and a referral will be made to [facility] for community case management. CM will cointinue to support Cesar and assess for additional discharge needs.
[2021-02-22 11:59] LABS: ALT 516 U/L (16-63); AST 212 U/L (15-37); Albumin 3.4 g/dL (3.4-5.0); Alkaline Phosphatase 84 U/L (46-116); Anion Gap 12.3 mmol/L (3-11); BUN 11 mg/dL (7-18); Bilirubin, Total 0.7 mg/dL (0.2-1.0); CO2 23.7 mmol/L (21.0-32.0); CREATININE 0.8 mg/dL (0.70-1.30); Calcium 8.7 mg/dL (8.5-10.1); Chloride 103 mmol/L (98-107); Glucose 140 mg/dL (74-106); Potassium 4.1 mmol/L (3.5-5.1); Sodium 139 mmol/L (136-145); Total Protein 7.2 g/dL (6.4-8.2)
--- NOTE | 2021-02-22 12:03 | PDOC.HHF2F ---
Home Health Certification Home Health Certification: 1. Encounter Date and Reason I certify that Cesar Hsu was seen by Sisi López MD on 02/22/21 and that I had a [id number] encounter with this patient that meets the physician face to face encounter requirements. 2. Clinical Findings Supporting Skilled Need and Homebound Status I certify that home health services are medically necessary, include either intermittent fci and/or physical/speech therapy, and that this patient is homebound in that absences from the home require considerable and taxing effort and are infrequent or of short duration, or are attributable to the need to receive medical care. [X] (a) Attached documentation from encounter provides clinical findings supporting skilled need and homebound status (including what assistance patient requires to leave the home). The encounter with the patient was in whole, or in part, for the following medical condition, which is the primary reason for home health care: Acute Aneta w/[facility]: Patient has incisions with benson. Needs checks for infection Physical Therapy: Speech Therapy: Homebound: except for dr. valenzuela 3. Certification and Authentication I certify that I composed the above information based on my clinical judgement relating to this patient's medical condition and, if applicable, clinical findings communicated to me by the NPP or inpatient physician who performed the Home Health Referral. All further orders will be obtained through Dr. Mascorro
[2021-02-22] MEDS: Pantoprazole 40 MG VIAL IVP (12:25)
[2021-02-22] MEDS: Milk of Magnesia 30 ML CUP PO (12:38)
--- NOTE | 2021-02-22 17:27 | CMDISCH_ITS ---
- If Service Date Differs Date of service: 02/22/21 Time of Service: 17:27 LACE Index Scoring Tool - Questions: Length of Stay (in days): 1 Acuity (Admit via E.D.?): No E.D. Visits: 0 - Answers: Total Score: 1 Risk of Readmission: Low Risk Care Management Discharge Reason for Hospitalization: acute cholecystitis Discharge Plan: Cesar will be discharged home with new home health services for nursing. A referral was also made by CM to [facility] for community case management. He will transport with his girlfriend and her father via private vehicle and follow up with his community providers. Patient/Family Education Needs: Review of discharge instructions, follow up plan, medications, limitations, activity, Ask Me Three
== END 2021-02-22 12:55 | disposition home health service (06) | DRG 419 ==
LOC: SUR 14:14 → MS 14:53
PROVIDERS: Admitting Provider Surgery; PCP Emergency Medicine; Visit Provider Surgery
PROC: 0FT44ZZ Resection of Gallbladder, Percutaneous Endoscopic Approach (ICD-10-PCS; CPT 47562; principal; 2021-02-21 09:30)
DX: K80.12 Calculus of gallbladder with acute and chronic cholecystitis without obstruction (principal); K21.9 Gastro-esophageal reflux disease without esophagitis; J44.9 Chronic obstructive pulmonary disease, unspecified
CPT/HCPCS: 47562; 36415; 80053; 90686; J1650; 85025; 87070; 87205; 88304; J0131; J0690; J1100; J1790; J1885; J1956; J2001; J2250; J2405; J3010

== ENCOUNTER 2023-10-29 02:03 | Outpatient (CLI) | payer MEDICAID, SELFPAY ==
[2023-10-29 10:31] LABS: Hemoglobin A1C 5.3 % (<5.7)
[2023-10-29 10:33] LABS: ALT 62 U/L (16-63); AST 19 U/L (15-37); Alkaline Phosphatase 72 U/L (46-116); Bilirubin, Direct 0.2 mg/dL (0.0-0.2); Calculated LDL 124 mg/dL (<100); Cholesterol 185 mg/dL (<200); HDL Cholesterol 43 mg/dL (40-60); Total Protein 7.8 g/dL (6.4-8.2); Triglyceride 92 mg/dL (<150)
[2023-10-30 11:43] LABS: HBs Antibody, Qual Negative (See Note); HBs Antibody, Quant <3.1 mIU/mL (See Note); Hepatitis B Core Antibody Negative (Negative); Hepatitis B surface Ag Negative (Negative); Hepatitis C Ab w Rflx HCV PCR Negative (Negative)
== END 2023-10-29 02:04 | disposition home or self-care (01) ==
LOC: LOS 02:03 → LBO 11:17
PROVIDERS: PCP Nurse Practitioner Family; Visit Provider Nurse Practitioner Family
DX: R74.8 Abnormal levels of other serum enzymes (principal); Z13.220 Encounter for screening for lipoid disorders; Z13.1 Encounter for screening for diabetes mellitus
CPT/HCPCS: 36415; 80061; 80076; 86704; 86706; 86803; 87340; 83036